=== PATIENT | female | born 1990 | race Caucasian/White ===

== ENCOUNTER 2020-03-30 22:34 | Emergency (ER) | payer MEDICAID ==
[~2020-03-30] VITALS: Ht 162.6 cm; Wt 109.0 kg
--- NOTE | 2020-03-30 22:58 | PHYS DOC ---
Past Medical History Past Medical History: Anxiety, Depression Additional Past Medical Histor: Strabismus-left eye Additional Past Surgical Histo: Eye surgery Smoking Status: Current Every Day Smoker Alcohol Use: None Drug Use: None General Adult EDM: Chief Complaint: ANXIETY/PANIC ATTACK HPI: HPI: Patient is a 29 year old female presents with report of generalized anxiety. Reports is been ongoing for the last several weeks. Patient reports today became a little bit worse. Patient does have some increased life stressors. Patient reports she [facility] her up to follow with the [facility]. Patient reports unfortunately was not able to see anyone from the [facility] today but is supposed to follow-up in the morning. Denies suicidality. Requesting something to help her decompress. Denies . Review of Systems: Review of Systems: Constitutional: Denies fever or chills Eyes: Denies redness or eye pain HENT: Denies nasal congestion or sore throat Respiratory: Denies cough or shortness of breath Cardiovascular: Denies chest pain or palpitations GI: Denies abdominal pain, nausea, or vomiting : Denies dysuria or hematuria Musculoskeletal: Denies back pain or joint pain Integument: Denies rash or skin lesions Neurologic: Denies headache, focal weakness or sensory changes Complete systems were reviewed and found to be within normal limits, except as documented in this note. Physical Exam: PE: Constitutional: Well developed, well nourished, no acute distress, non-toxic appearance HENT: Normocephalic, atraumatic Eyes: Conjunctiva normal, no discharge, left eye strabismus Neck: Normal range of motion, supple Lungs & Thorax: No respiratory distress, equal chest rise and fall Skin: Warm, dry, no erythema, no rash Extremities: No tenderness, ROM intact, no edema Neurologic: Alert and oriented X 3, no focal deficits noted Psychologic: Affect anxious, judgment normal, denies suicidal or homicidal ideation EKG: EKG: [] Radiology/Procedures: Radiology/Procedures: [] Course & Med Decision Making: Course & Med Decision Making Patient presents with HPI and physical exam consistent for generalized anxiety disorder. Denies suicidal ideation. Patient to follow closely with the [facility]. Patient has a lead case manager with [facility]. Ativan 0.5 mg tablet provided in ED. Patient stable for discharge with outpatient follow-up with PCP/mental health. Discussed findings and plan with patient, who acknowledges understanding and agreement. Mayuri Disclaimer: Mayuri Disclaimer: This electronic medical record was generated, in whole or in part, using a voice recognition dictation system. Departure Departure Impression: Primary Impression: Generalized anxiety disorder Disposition: 01 HOME, SELF-CARE Condition: STABLE Referrals: NO PCP (PCP) Patient Instructions: Anxiety and Panic Attacks, [id number] Additional Instructions: Please follow closely with [facility] and with your lead case manager with [employer] Justicifation of Admission Dx: Justifications for Admission: Justification of Admission Dx: N/A GILMER BUSTOS DO Mar 30, 2020 22:58
[2020-03-30 23:05] VITALS: BP 173/113
[2020-03-30] MEDS ORDERED: LORazepam 0.5 MG TABLET ONE (23:13)
[2020-03-30] MEDS ORDERED: LORazepam 0.5 MG TABLET PO ONE (23:15)
== END 2020-03-30 23:15 | disposition home or self-care (01) ==
LOC: ER 22:34
DX: F41.1 Generalized anxiety disorder (principal); F32.9 Major depressive disorder, single episode, unspecified; F17.200 Nicotine dependence, unspecified, uncomplicated
CPT/HCPCS: 81025; 99283

== ENCOUNTER 2020-08-26 23:49 | Emergency (ER) | payer MEDICAID ==
[~2020-08-26] VITALS: Ht 162.6 cm; Wt 113.6 kg
[2020-08-27 00:09] LABS: BILIRUBIN,URINE NEGATIVE (NEG); CLARITY,URINE CLEAR; COLOR,URINE YELLOW; NITRITE,URINE NEGATIVE (NEG); PH,URINE 6.5 (<5.0-8.0); PROTEIN,URINE 30 mg/dL (NEG-TRACE); UROBILINOGEN,URINE 0.2 mg/dL (0.2 mg/dL)
[2020-08-27 00:12] LABS: BASO # 0.1 x10^3/uL (0.0-0.2); BASO % 1 % (0-3); EOS # 0.2 x10^3/uL (0.0-0.7); EOS % 1 % (0-3); HEMATOCRIT 40.3 % (36.0-47.0); HEMOGLOBIN 13.9 g/dL (12.0-15.5); LYMPH # 3.2 x10^3/uL (1.0-4.8); LYMPH % 26 % (24-48); MEAN CORPUSCULAR HEMOGLOBIN 29 pg (25-35); MEAN CORPUSCULAR HGB CONC 35 g/dL (31-37); MEAN CORPUSCULAR VOLUME 85 fL (79-100); MONO # 0.7 x10^3/uL (0.0-1.1); MONO % 6 % (0-9); NEUT # 8.3 x10^3/uL (1.8-7.7); NEUT % 67 % (31-73); PLATELET COUNT 359 x10^3/uL (140-400); RED BLOOD COUNT 4.75 x10^6/uL (3.50-5.40); RED CELL DISTRIBUTION WIDTH 14.5 % (11.5-14.5); WHITE BLOOD COUNT 12.4 x10^3/uL (4.0-11.0)
[2020-08-27 00:15] LABS: AMPHETAMINE/METHAMPHETAMINE NEG (NEG); BARBITURATES NEG (NEG); BENZODIAZEPINES NEG (NEG); CANNABINOIDS POS (NEG); COCAINE NEG (NEG); METHADONE NEG (NEG); OPIATES NEG (NEG); PHENCYCLIDINE NEG (NEG)
[2020-08-27 00:17] LABS: U PREG PATIENT NEGATIVE (NEG)
[2020-08-27 00:18] LABS: BACTERIA,URINE FEW /HPF (0-FEW)
[2020-08-27 00:19] LABS: CALCIUM 11.6 mg/dL (8.5-10.1); CREATININE 1.3 mg/dL (0.6-1.0); GFR 47.5; POTASSIUM 3.4 mmol/L (3.5-5.1)
[2020-08-27 00:19] LABS: AMORPHOUS SEDIMENT,UR PRESENT /HPF; GRANULAR CASTS,URINE OCCASIONAL /HPF; HYALINE CASTS, URINE OCCASIONAL /HPF
[2020-08-27 00:25] LABS: ALBUMIN 3.6 g/dL (3.4-5.0); ALBUMIN/GLOBULIN RATIO 0.8 (1.0-1.7); TOTAL BILIRUBIN 0.2 mg/dL (0.2-1.0); TOTAL PROTEIN 8.1 g/dL (6.4-8.2)
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
--- NOTE | 2020-08-27 00:53 | RAD ---
Single view chest and left-sided rib study dated 08/27/2020. No comparison available. Clinical data indication: Pain after injury. FINDINGS: Single upright view the chest shows normal heart and mediastinal contours. Lungs are clear. No consol idation or pleural effusion. No pneumothorax. Dedicated views of the left-sided ribs show no evidence of displaced left rib fracture. No acute bony abnormality. IMPRESSION: No acute radiographic abnormality. No evidence of displaced left rib fracture. Electronically signed by: Gian Alarcon MD (08/27/2020 12:50 AM) [facility]
--- NOTE | 2020-08-27 00:53 | RAD ---
Three-view left wrist dated 08/27/2020. No comparison available. CLINICAL INDICATION: Pain after injury. FINDINGS: 3 views left wrist show normal bony alignment. No displaced fracture. No acute osseous or articular a bnormality. No periostitis or bone destruction. IMPRESSION: No acute radiographic abnormality. Electronically signed by: Gian Alarcon MD (08/27/2020 12:51 AM) [facility]
[2020-08-27] MEDS ORDERED: DIPH,PERTUSS(ACELL),TET VAC/PF 0.5 ML SYRINGE. VAX IM ONE (01:00)
[2020-08-27] MEDS ORDERED: ACETAMINOPHEN 325 MG TABLET. PO ONE (01:00)
[2020-08-27] MEDS ORDERED: POTASSIUM CHLORIDE 20 MEQ TABLET.ER. PO ONE (02:00)
[2020-08-27] MEDS ORDERED: FOSFOMYCIN TROMETHAMINE 3 GM PACKET PO ONE (02:00)
[2020-08-27 05:30] VITALS: BP 146/95
== END 2020-08-27 05:40 ==
LOC: ER 23:49 → EEVIPCON 23:49 → ER 08-27 05:40
DX: R45.851 Suicidal ideations (principal); N39.0 Urinary tract infection, site not specified; F12.10 Cannabis abuse, uncomplicated; Z20.828 Contact with and (suspected) exposure to other viral communicable diseases; M25.532 Pain in left wrist; R07.81 Pleurodynia; G89.11 Acute pain due to trauma; E66.9 Obesity, unspecified; Z68.41 Body mass index [BMI] 40.0-44.9, adult; Z59.0 Homelessness; F31.9 Bipolar disorder, unspecified; F17.200 Nicotine dependence, unspecified, uncomplicated; Y04.8XXA Assault by other bodily force, initial encounter; Y93.89 Activity, other specified; Y92.89 Other specified places as the place of occurrence of the external cause; Y99.8 Other external cause status
CPT/HCPCS: 36415; 71101; 73110; 80053; 80307; 81001; 81025; 85025; 87086; 87426; 99285; U0003; C9803